=== PATIENT | male | born 1975 | race Two or more races ===

== ENCOUNTER 2018-04-04 20:19 | Emergency (ER) | payer OTHER ==
[2018-04-04] MEDS ORDERED: ASPIRIN 81 MG CHEWABLE TAB PO ONE (20:48)
[2018-04-04] MEDS ORDERED: NS 1,000 ML IV ONE (20:48)
--- NOTE | 2018-04-04 20:53 | EDPHY ---
General Time Seen by Provider: 04/04/18 20:32 Narrative: CLINICAL IMPRESSION: Chest tightness, back pain, mild pancreatitis ASSESSMENT/PLAN: 42-year-old male with past medical history of hypertension and regular alcohol use presents to the emergency department with approximately 14 hr of generalized chest tightness, worsened by inspiration, associated with intermittent back pain. On arrival, patient is hypertensive at 160, no tachycardia, tachypnea or hypoxia. EKG shows normal sinus rhythm, no acute ST or T-wave changes. This was reviewed with Dr. Vitale. Troponin negative. D- dimer negative. Labs indicate a mild elevation of patient's lipase at 470 and a mildly elevated AST. This may be due to patient's regular daily alcohol use. Right upper quadrant ultrasound shows no evidence of acute cholecystitis, pancreatic mass, pancreatic inflammation, and shows fatty liver. Chest x-ray read by Radiology with no acute cardiopulmonary changes. On reassessment, patient was feeling better. I have encouraged him to decrease his alcohol intake and stick to a clear liquid diet for the next several days. Please follow up with a primary care doctor in the next 24-48 hours to recheck. Warning signs for return to emergency department were outlined in person and discharge papers. Student Counselor used to obtain patient's history, explained diagnostic studies and discharge instructions. DIFFERENTIAL DX: Differential diagnosis includes but not limited to myocardial ischemia, pulmonary embolus, chest wall pain, pleural inflammation, musculoskeletal chest wall pain, aortic aneurysm, and pulmonary infectious causes. ED PROCEDURES: See lab and/or imaging results below ED COURSE: 8:45 p.m.: Patient seen assessed by myself. Currently reporting 7/10 chest discomfort. No associated shortness of breath, nausea, vomiting, radiating discomfort. There is a pleuritic component. EKG, chest x-ray, labs, D-dimer, aspirin ordered. EKG reviewed with Dr. Harrison. 9:30 pm: Labs reviewed. Troponin negative. Mild elevation of lipase and small elevation in AST, possible from daily etoh. Will order RUQ US. D dimer negative. 10:30 p.m.: Case reviewed with Radiology. Ultrasound negative for acute cholecystitis. Pancreas poorly visualized but no abnormal findings from portion of pancreas that is seen. Fatty liver disease. CHIEF COMPLAINT: Chest and back pain HPI: 42-year-old [place]-speaking only male presents to the emergency department with complaints of intermittent back and chest pain since 8:00 a.m. This morning. 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 However he continued to work during the day. He states the pain began in the back and wraps around to the chest. He states he currently has pain only in the chest and reports this as a tightness rated as 7/10. No associated shortness of breath, neck, jaw, or arm pain. He denies nausea and vomiting. No reported abdominal pain or prior abdominal surgery. He does intermittently smoke cigarettes and drinks 2-3 alcoholic drinks daily. He has a history of hypertension. No reports of hyperlipidemia, diabetes, previous known cardiovascular disease and no family history of cardiovascular disease. He took ibuprofen earlier this evening which helped his back pain but not his chest pain. No recent air or car travel. No asymmetric leg swelling. No personal or family history of DVT. PAST MEDICAL HISTORY: Hypertension See nurse/triage notes for additional history if applicable Pertinent Past Surgical History: None reported Family History: No family history of cardiovascular disease Social History: Smokes cigarettes sometimes, drinks daily REVIEW OF SYSTEMS: All other systems negative Constitutional: No fever, no chills, appetite change. Eyes: No discharge, vision change ENT: No sore throat, congestion, ear pain. Cardiovascular: No chest pain, no palpitations. Respiratory: No cough, no shortness of breath. Gastrointestinal: No abdominal pain, no vomiting, diarrhea. Genitourinary: No hematuria, dysuria, flank pain, pelvic pain Musculoskeletal: No back pain, joint swelling, joint pain, myalgias. Skin: No rashes, color change. Neurological: No headache, dizziness, weakness. PHYSICAL EXAM: General Appearance: Alert, oriented, appropriate, cooperative, NAD, well hydrated, non-toxic appearing, hypertensive at 160 systolic no hypoxia. HEENT: Oropharynx clear is no erythema or exudates, no tonsillar hypertrophy or asymmetry. Dentition without abnormality.] Eyes: PERRLA, no acute vision change, nystagmus, swelling, discharge, pain or photosensitivity. Conjunctiva pink, no pallor or injection Neck: Supple, nontender, no lymphadenopathy, no midline pain, FROM, no meningismus. Respiratory: There are no retractions, lungs are clear to auscultation. Pushing on the anterior chest wall exacerbates back pain. Cardiac: Regular rate and rhythm, no murmurs or gallops. Gastrointestinal: Abdomen is soft, mild tenderness to right upper quadrant and epigastrium with negative Silva sign bowel sounds normal, no masses/hernia, no rigidity, guarding or focal peritoneal findings. Neurological: Alert and oriented x 3, CN 2-12 grossly intact, normal gait no ataxia, DTR's intact, normal sensation and strength Skin: Warm, dry, no rashes, no nodules on palpation. Musculoskeletal: Extremities are symmetrical, full range of motion, no tenderness, deformity, swelling, or erythema. No asymmetric calf pain or tenderness to palpation Psychiatric: Patient is oriented X 3, there is no agitation. MEDICAL DECISION MAKING: Patient was seen independently. Secondary supervising physician at time of evaluation was Dr. Harrison, Dr. Vitale. Diagnosis: Chest tightness, back pain. New, requires workup Summary: See Assessment and Plan for summary of ED visit Clinical lab tests: ordered / reviewed. Independent visualization of images, tracing, or specimens: Yes / No. Decision to obtain medical records or history from someone other than the patient: No Review / Summarize previous medical records: None available Discussed patient with another provider: Discussed with Dr. Harrison and Dr. Vitale. strike out machine operator used with the patient Patient Progress: Stable for discharge. - Diagnostics Imaging Results: Imaging Impressions Chest X-Ray 04/04/18 20:48 Impression: No acute findings in the chest. Abdomen Ultrasound 04/04/18 21:22 Impression: 1. Diffuse fatty infiltration of a mildly enlarged liver. 2. No evidence of biliary ductal dilatation. 3. Visualized portions of the pancreas is within normal limits, although the majority is obscured by bowel gas. Oseas Maguire was notified of these findings by telephone at 10:25 PM on 2018 - History Smoking Status: Never smoked - Objective Vital Signs: Initial Vital Signs Temperature (C) 36.8 C 04/04/18 20:28 Heart Rate 83 04/04/18 20:28 Respiratory Rate 16 04/04/18 20:28 Blood Pressure 160/104 H 04/04/18 20:28 O2 Sat (%) 97 04/04/18 20:28 O2 Delivery Mode Room Air Allergies/Adverse Reactions: No Known Allergies Allergy (Verified 04/04/18 20:30) Home Medications: Medication Instructions Recorded Ibuprofen [Motrin (*)] 800 mg PO Q6-8PRN #30 tab 01/26/15 Lisinopril 01/26/15 Laboratory Results: Laboratory Results 04/04/18 20:35 04/04/18 20:35 04/04/18 04/04/18 04/04/18 20:43 20:35 20:35 WBC RBC Hgb Hct MCV MCH MCHC RDW Plt Count MPV Neut % (Auto) Lymph % (Auto) Miner % (Auto) Eos % (Auto) Baso % (Auto) Nucleat RBC Rel Count Absolute Neuts (auto) Absolute Lymphs (auto) Absolute Monos (auto) Absolute Eos (auto) Absolute Basos (auto) Absolute Nucleated RBC Immature Gran % Immature Gran # D-Dimer < 0.27 ug/mLFEU ug/mLFEU (0.00-0.50) Sodium 135 mEq/L mEq/L (135-145) Potassium 3.6 mEq/L mEq/L (3.5-5.2) Chloride 101 mEq/L mEq/L (97-110) Carbon Dioxide 23 mEq/l mEq/l (22-31) Anion Gap 11 mEq/L mEq/L (6-14) BUN 16 mg/dL mg/dL (7-23) Creatinine 0.8 mg/dL mg/dL (0.7-1.3) Estimated GFR > 60 Glucose 112 mg/dL H mg/dL (70-100) Calcium 9.3 mg/dL mg/dL (8.5-10.4) Total Bilirubin 1.2 mg/dL mg/dL (0.1-1.4) Conjugated Bilirubin 0.4 mg/dL mg/dL (0.0-0.5) Unconjugated Bilirubin 0.8 mg/dL mg/dL (0.0-1.1) AST 98 IU/L H IU/L (17-59) ALT 67 IU/L IU/L (21-72) Alkaline Phosphatase 111 IU/L IU/L (38-126) POC Troponin I 0.00 ng/mL ng/mL (0.00-0.08) Total Protein 8.5 g/dL H g/dL (6.3-8.2) Albumin 4.9 g/dL g/dL (3.5-5.0) Lipase 472 IU/L H IU/L (23-300) 04/04/18 20:35 WBC 7.80 10^3/uL 10^3/uL (3.80-9.50) RBC 5.23 10^6/uL 10^6/uL (4.40-6.38) Hgb 16.2 g/dL g/dL (13.7-17.5) Hct 45.6 % % (40.0-51.0) MCV 87.2 fL fL (81.5-99.8) MCH 31.0 pg pg (27.9-34.1) MCHC 35.5 g/dL g/dL (32.4-36.7) RDW 12.0 % % (11.5-15.2) Plt Count 220 10^3/uL 10^3/uL (150-400) MPV 11.3 fL fL (8.7-11.7) Neut % (Auto) 71.1 % % (39.3-74.2) Lymph % (Auto) 20.6 % % (15.0-45.0) Miner % (Auto) 6.2 % % (4.5-13.0) Eos % (Auto) 1.5 % % (0.6-7.6) Baso % (Auto) 0.3 % % (0.3-1.7) Nucleat RBC Rel Count 0.0 % % (0.0-0.2) Absolute Neuts (auto) 5.55 10^3/uL 10^3/uL (1.70-6.50) Absolute Lymphs (auto) 1.61 10^3/uL 10^3/uL (1.00-3.00) Absolute Monos (auto) 0.48 10^3/uL 10^3/uL (0.30-0.80) Absolute Eos (auto) 0.12 10^3/uL 10^3/uL (0.03-0.40) Absolute Basos (auto) 0.02 10^3/uL 10^3/uL (0.02-0.10) Absolute Nucleated RBC 0.00 10^3/uL 10^3/uL (0-0.01) Immature Gran % 0.3 % % (0.0-1.1) Immature Gran # 0.02 10^3/uL 10^3/uL (0.00-0.10) D-Dimer Sodium Potassium Chloride Carbon Dioxide Anion Gap BUN Creatinine Estimated GFR Glucose Calcium Total Bilirubin Conjugated Bilirubin Unconjugated Bilirubin AST ALT Alkaline Phosphatase POC Troponin I Total Protein Albumin Lipase Medications Given: Discontinued Medications Aspirin (Aspirin) 324 mg PO EDNOW ONE Stop: 04/04/18 20:49 Last Admin: 04/04/18 21:01 Dose: 324 mg Sodium Chloride (Ns) 1,000 mls @ 0 mls/hr IV EDNOW ONE; Wide Open PRN Reason: Protocol Stop: 04/04/18 20:49 Last Admin: 04/04/18 21:01 Dose: 1,000 mls Point of Care Test Results: Chemistry 04/04/18 20:43 POC Troponin I 0.00 ng/mL ng/mL (0.00-0.08) Departure - Departure Disposition: Home, Routine, Self-Care Clinical Impression: Chest tightness, Elevated liver enzymes Pancreatitis, alcoholic, acute Qualifiers: Acute pancreatitis complication: no infection or necrosis Qualified Code(s): K85.20 - Alcohol induced acute pancreatitis without necrosis or infection Condition: Good Instructions: Chest Pain (ED), Pancreatitis (ED) Additional Instructions: DISCHARGE INSTRUCTIONS FROM YOUR DOCTOR Thank you for visiting our emergency department today. You were treated by a physician clinical medical assistant today and your case was reviewed with our ED Attending physician. Please keep in mind that discharge from the emergency department does not mean that there is nothing wrong - it simply means that we have not identified an emergency condition that requires further evaluation or treatment in the hospital. You should always plan to follow up with primary care for re- evaluation of your condition in the next 2-3 days. If you have been referred to a specialist, please call as soon as possible (today or tomorrow) to schedule your follow up appointment at the appropriate time. YOUR DIAGNOSTIC WORKUP IN THE EMERGENCY DEPARTMENT INCLUDED EKG, CARDIAC ENZYMES , CHEST X-RAY, LAB WORK, AND AN ULTRASOUND OF THE GALLBLADDER AND PANCREAS. YOUR EKG IS REASSURING WITH NO CARDIAC ARRHYTHMIA OR SIGN OF HEART ATTACK. CARDIAC ENZYMES ARE NEGATIVE. CHEST X-RAY IS NORMAL. LAB WORK SHOWS MILD ELEVATION IN YOUR PANCREATIC ENZYMES AND 1 OF YOUR LIVER ENZYMES WHICH IS LIKELY SECONDARY TO YOU'RE DAILY ALCOHOL USE. WE STRONGLY RECOMMEND THAT YOU TRY DECREASING ALCOHOL. PLEASE STICK TO A LIQUID DIET FOR THE NEXT 24-48 HOURS , AVOID SPICY FOOD, CITRUS SEAFOOD, OR ANYTHING THAT CAUSES HEARTBURN. WE STRONGLY RECOMMEND THAT YOU SEE A PRIMARY CARE DOCTOR IN THE NEXT 24-48 HOURS. THE ULTRASOUND OF YOUR ABDOMEN DID NOT SHOW ANY PROBLEMS WITH THE GALLBLADDER OR OBVIOUS ABNORMALITY TO THE PANCREAS BUT YOU DO HAVE A FATTY LIVER. THIS CAN BE SECONDARY TO DIETARY CHANGES. PLEASE EAT MORE FRUITS, VEGETABLES AND HIGH- FIBER FOODS. PLEASE RETURN TO THE EMERGENCY DEPARTMENT FOR WORSENING CHEST PAIN , SHORTNESS OF BREATH, INCREASED BACK PAIN, DIZZY SPELLS OR FAINTING SPELLS, PAIN RADIATING TO THE ARM JAW OR NECK, VOMITING, INABILITY TO EAT OR DRINK WATER , OR ANY OTHER CONCERNS. TH[facility]PSON TRABAJO DE DIAGNSTICO EN EL DEPARTAMENTO DE EMERGENCIA INCLUYE EKG, ENZIMAS CARDACAS, SWETA X DEL PECHO, TRABAJO DE LABORATORIO Y UN ULTRASONIDO DEL ESCALADOR DE PAPEL Y PANTALONES. THOMPSON EKG ES REASIFICAR SIN ARRITMIA CARDIACA O LA SEAL DE ATAQUE DE CORAZN. LAS ENZIMAS CARDIACAS SON NEGATIVAS. La radiograf a de pecho es normal. EL TRABAJO DE LABORATORIO MUESTRA ELEVACIN LEVE EN NANY ENZIMAS PANCRETICAS Y EN LUIS FERNANDO DE ENZIMAS LIVALES QUE ES POSIBLEMENTE SECUNDARIA PARA USTED ES EL USO DIARIO DEL ALCOHOL. RECOMENDAMOS FUERTEMENTE QUE USTED TRATA DE ALCOHOL DECRECIENTE. POR FAVOR, PONGA LUIS FERNANDO DIETA LQUIDA PARA LAS PROXIMAS 24-48 HORAS, EVITE LOS ALIMENTOS PICANTES, LOS MARISCOS DE CTRICOS O CUALQUIER COSA QUE CAUSE A HEARTBURN. NOSOTROS RECOMENDAMOS QUE TITO A UN MDICO DE ATENCIN PRIMARIA EN LAS PRXIMAS 24-48 HORAS. EL ULTRASONIDO DE TU ABDOMEN NO MUESTRA NINGN PROBLEMA CON EL GALLBLADDER O LA ANORMALIDAD OBVIA A LAS PANTALLAS AUDREY T TIENES UN VIVO GRASO. ESTO PUEDE SER SECUNDARIO A LOS CAMBIOS DIETTICOS. POR FAVOR COMA MS FRUTAS, VERDURAS Y ALIMENTOS DE ANGELES FIBRA. POR FAVOR REGRESE AL DEPARTAMENTO DE EMERGENCIA PARA AUMENTAR EL DOLOR DEL PECHO, DIFCIL DE LA RESPIRACIN, AUMENTAR EL DOLOR DE ESPALDA, LOS RIESGOS DIZZYOS O DESTACADOS, EL DOLOR RADIANDO EL RBACHA, EL VACUNO, LA INCAPACIDAD PARA EL COMEDOR O EL FAVIAN People present with illnesses and injuries in different ways, and it is always possible that we have missed something. You may always return for re-evaluation if symptoms worsen or if they are not improving or if you develop new/different symptoms. Again, thank you for choosing our emergency department. We hope that you feel better. Referrals: Kristine Aguillon PA [Primary Care Provider] - 1-2 days without fail
[2018-04-04 21:00] LABS: PLATELET COUNT 220 10^3/uL (150-400)
--- NOTE | 2018-04-04 22:15 | CPEKG ---
Test Reason : OPEN Blood Pressure : / mmHG Vent. Rate : 076 BPM Atrial Rate : 076 BPM P-R Int : 146 ms QRS Dur : 087 ms QT Int : 363 ms P-R-T Axes : 037 041 034 degrees QTc Int : 409 ms Sinus rhythm Confirmed by Esau Harrison ([id number]) on 04/04/2018 10:14:39 PM Referred By: ESAU HARRISON Confirmed By:Esau Harrison
[2018-04-04 23:04] VITALS: BP 134/82
== END 2018-04-04 23:13 | disposition home or self-care (01) ==
DX: R07.89 Other chest pain (principal); K85.20 Alcohol induced acute pancreatitis without necrosis or infection; I10 Essential (primary) hypertension
CPT/HCPCS: 84484-ER